=== PATIENT | female | born 1980 | race Two or more races ===

== ENCOUNTER 2016-12-20 16:48 | Emergency (ER) | payer MEDICAID ==
[~2016-12-20] VITALS: Ht 165.1 cm; Wt 109.0 kg
[2016-12-21] MEDS ORDERED: ACETAMINOPHEN 325MG TABLET PO ONE (00:30)
[2016-12-21] MEDS ORDERED: DIPHENHYDRAMINE 25MG CAPSULE PO ONE (00:30)
[2016-12-21] MEDS ORDERED: METHYLPREDNISOLONE SOD SUCC 125 MG/2 ML VIAL IV ONE (00:30)
[2016-12-21] MEDS ORDERED: METHYLPREDNISOLONE SOD SUCC 125 MG/2 ML VIAL IM ONE (00:45)
[2016-12-21 01:38] VITALS: BP 119/70
== END 2016-12-21 02:24 | disposition home or self-care (01) ==
LOC: ER 16:49
DX: B86 Scabies (principal); J45.909 Unspecified asthma, uncomplicated; F17.210 Nicotine dependence, cigarettes, uncomplicated; Z98.890 Other specified postprocedural states; R03.0 Elevated blood-pressure reading, without diagnosis of hypertension
CPT/HCPCS: 96372; 99283; J2930; Z7610; Q0163

== ENCOUNTER 2023-05-16 20:03 | Emergency (ER) | payer MEDICAID, OTHER ==
[2023-05-16 20:25] VITALS: PULSE 109
[2023-05-17] MEDS ORDERED: CETI1TAB MT (03:41)
[2023-05-17] MEDS ORDERED: P20 MT (03:41)
[2023-05-17] MEDS ORDERED: TUSSL MT (03:41)
[2023-05-17] MEDS ORDERED: ALBU6.7H15 INH (03:41)
== END 2023-05-16 23:09 | disposition left against medical advice (07) ==
LOC: ER 20:03
DX: Z53.21 Procedure and treatment not carried out due to patient leaving prior to being seen by health care provider (principal)

== ENCOUNTER 2023-05-17 02:40 | Emergency (ER) | payer OTHER ==
[~2023-05-17] VITALS: Ht 165.1 cm; Wt 115.1 kg
[2023-05-17 03:04] VITALS: O2SAT 97
[2023-05-17] MEDS ORDERED: TUSSL MT (03:41)
[2023-05-17] MEDS ORDERED: CETI1TAB MT (03:41)
[2023-05-17] MEDS ORDERED: ALBU6.7H15 INH (03:41)
[2023-05-17] MEDS ORDERED: P20 MT (03:41)
[2023-05-17] MEDS ORDERED: GUAIFENESIN-DM 200MG-20MG/10ML UDC PO ONE (03:45)
[2023-05-17] MEDS ORDERED: PREDNISONE 20MG TABLET PO ONE (03:45)
[2023-05-17] MEDS ORDERED: GUAIFENESIN-DM 200MG-20MG/10ML UDC PO NR (04:00)
[2023-05-17 04:24] VITALS: BP 138/78; PULSE 100; RESP 18; TEMP 98.2
== END 2023-05-17 04:26 | disposition home or self-care (01) ==
LOC: ER 02:40
DX: J20.9 Acute bronchitis, unspecified (principal); J45.909 Unspecified asthma, uncomplicated; Z98.890 Other specified postprocedural states
CPT/HCPCS: 99283; J7512

== ENCOUNTER 2024-09-07 00:56 | Emergency (ER) | payer MEDICAID, OTHER ==
[~2024-09-07] VITALS: Ht 165.1 cm; Wt 114.0 kg
[~2024-09-07 00:56] MED LIST: ALBU6.7H15 INH; CETI1TAB MT; P20 MT; TUSSL MT
[2024-09-07 01:20] VITALS: O2SAT 98
[2024-09-07 01:21] VITALS: BP 143/97; PULSE 110; RESP 18; TEMP 36.7; O2SAT 100
[2024-09-07] MEDS ORDERED: ALBU18HF2 IH (01:30)
== END 2024-09-07 02:11 | disposition home or self-care (01) ==
LOC: ER 00:56
DX: J45.909 Unspecified asthma, uncomplicated (principal); Z76.0 Encounter for issue of repeat prescription; Z90.89 Acquired absence of other organs; Z98.890 Other specified postprocedural states; Z79.899 Other long term (current) drug therapy
CPT/HCPCS: 99281; Z7610 ×2; A4606

== ENCOUNTER 2025-05-10 22:46 | Emergency (ER) | payer MEDICAID ==
[~2025-05-10] VITALS: Ht 165.1 cm; Wt 99.9 kg
[~2025-05-10 22:46] MED LIST changes: +ALBU18HF2 IH
[2025-05-10 22:55] VITALS: O2SAT 100
[2025-05-10 23:04] VITALS: BP 144/89; PULSE 95; RESP 19; TEMP 36.8; O2SAT 99
[2025-05-10] MEDS ORDERED: ALBU90AE INH (23:04)
== END 2025-05-10 23:29 | disposition home or self-care (01) ==
LOC: ER 22:46
DX: J45.901 Unspecified asthma with (acute) exacerbation (principal); Z90.89 Acquired absence of other organs; Z79.899 Other long term (current) drug therapy
CPT/HCPCS: 99283

== ENCOUNTER 2025-05-13 21:52 | Emergency (ER) | payer MEDICAID ==
[~2025-05-13] VITALS: Ht 165.1 cm; Wt 100.0 kg
[~2025-05-13 21:52] MED LIST changes: +ALBU90AE INH
[2025-05-13 22:02] VITALS: TEMP 36.8; O2SAT 100
[2025-05-13] MEDS ORDERED: ALBU18HF2 INH (22:36)
[2025-05-13 22:50] VITALS: BP 129/75; PULSE 94; RESP 14; O2SAT 100
== END 2025-05-13 22:51 | disposition home or self-care (01) ==
LOC: ER 21:52
DX: J45.909 Unspecified asthma, uncomplicated (principal); Z90.89 Acquired absence of other organs; Z76.0 Encounter for issue of repeat prescription
CPT/HCPCS: 99282